=== PATIENT | male | born 1995 | race African-American/Black ===

== ENCOUNTER 2021-09-24 23:36 | Emergency (ER) | payer BC, SELFPAY ==
--- NOTE | ~2021-09-24 | XR_ITS ---
EXAMINATION: XR chest 2V DATE: 09/25/2021 00:05 INDICATION: Shortness of breath TECHNIQUE: PA and lateral views of the chest are obtained. COMPARISON: 04/06/2019 FINDINGS: The lungs are free of acute opacities. There is no pleural effusion or pneumothorax. The ca rdiomediastinal silhouette is normal. The visualized bones and soft tissues are unremarkable. IMPRESSION: 1. No acute cardiopulmonary abnormality. Reviewed, dictated and finalized at location A.
--- NOTE | 2021-09-24 23:38 | ECG_ITS ---
Measurements Intervals [place] Rate: 55 P: 62 [place]: 156 QRS: 83 QRSD: 143 T: 23 QT: 382 QTc: 366 Interpretive Statements SINUS BRADYCARDIA RIGHT BUNDLE BRANCH BLOCK BASELINE ARTIFACT- II, III, AVF ABNORMAL ECG Electronically Signed On 09-25-2021 6:26:48 CDT by David Mckinney D.O.
[2021-09-24 23:41] VITALS: BP 135/86; PULSE 71; RESP 16; TEMP 36.5; O2SAT 100
[2021-09-24 23:48] VITALS: O2SAT 98
--- NOTE | 2021-09-24 23:56 | ED.GENADULT ---
HPI - General Adult General Chief complaint: Chest Pain Stated complaint: Shortness of breath, Chest pain Time Seen by Provider: 09/24/21 23:47 History of Present Illness HPI narrative: Patient is a 25-year-old gentleman who presents to the emergency department with chief complaint of chest discomfort. Patient reports that he started having pain in the left side of his chest about 3 hours ago. Patient states the pain is more of a pressure sensation but worse with inspiration and worse with movement. Patient denies trauma denies fever denies chills reports that his only past medical history is for asthma and has had a testicular torsion and appendix surgery. The patient states that he has no family history for early cardiac disease no history of thromboembolic disease. Patient does report that he smokes cigarettes. Related Data Allergies Allergy/AdvReac Type Severity Reaction Status Date / Time No Known Allergies Allergy Verified 09/24/21 23:47 Review of Systems Review of Systems: A 10 system review of systems was completed on the patient and is negative except for what is stated in the HPI. Nursing and ancillary documentation was reviewed. [facility] Past Medical History Medical History Testicular torsion Social History Social History Smoking status: Current every day smoker Tobacco type: cigarettes and cigars Alcohol intake: current Substance use: current Substance use type: marijuana Exam Narrative: GENERAL: Well-appearing, well-nourished, and in no acute distress. HEAD: Normocephalic, atraumatic. EYES: PERRLA and EOMI. ENT: Nares clear, no rhinorrhea or epistaxis. Mucous membranes moist. NECK: Supple. CHEST: Clear to auscultation. No respiratory distress. Tenderness to palpation of the left sternal border. HEART: Regular rate and rhythm. No murmur heard. Normal peripheral pulses. ABDOMEN: Soft, nontender, nondistended, normal active bowel sounds. EXTREMITIES: Normal range of motion. No edema. SKIN: Warm, dry, no rash. NEURO: No focal deficits. Alert and oriented x3. PSYCH: Normal mood and affect. Course Course Emergency Course: EKG interpreted by me sinus rhythm rate of [address] elevation or ST depression there is a right bundle branch block. This is unchanged when compared to an EKG from March 2019 Vital Signs Vital signs: Vital Signs Temperature 36.5 C 09/24/21 23:41 Pulse Rate 71 09/24/21 23:41 Respiratory Rate 16 09/24/21 23:41 Blood Pressure 135/86 09/24/21 23:41 Pulse Oximetry 100 09/24/21 23:41 Temperature 36.5 C 09/24/21 23:41 Pulse Rate 56 L 09/25/21 02:59 Respiratory Rate 20 09/25/21 02:59 Blood Pressure 123/86 09/25/21 02:59 Pulse Oximetry 99 09/25/21 02:59 Medical Decision Making Vital Signs Vital Signs: Vital Signs Temperature 36.5 C 09/24/21 23:41 Pulse Rate 71 09/24/21 23:41 Respiratory Rate 16 09/24/21 23:41 Blood Pressure 135/86 09/24/21 23:41 Pulse Oximetry 100 09/24/21 23:41 Temperature 36.5 C 09/24/21 23:41 Pulse Rate 56 L 09/25/21 02:59 Respiratory Rate 20 09/25/21 02:59 Blood Pressure 123/86 09/25/21 02:59 Pulse Oximetry 99 09/25/21 02:59 Lab Data Result diagrams: 09/25/21 00:53 09/25/21 00:53 Labs: Lab Results 09/25/21 09/25/21 09/25/21 Range/Units 00:53 00:53 00:53 WBC 5.6 (4.5-10.0) K/mm3 RBC 4.93 (4.6-6.20) M/mm3 Hgb 14.7 (14.0-18.0) g/dL Hct 43.2 (42.0-52.0) % MCV 87.6 (80-100) fl MCH 29.8 (26-34) pg MCHC 34.0 (32-36) g/dl RDW 12.7 (11.5-14.5) % Plt Count 218 (150-375) k/mm3 MPV 9.2 (7.4-10.4) fl Immature Gran % (Auto) 0.2 (0-0.5) % Neut % (Auto) 53.0 (45.5-73.1) % Lymph % (Auto) 35.0 (18.3-44.2) % [place] % (Auto) 10.6 H (2.6-8.5) % Eos % (Auto) 0.7
[2021-09-25] MEDS: ASPIRIN 81 MG CHEWABLE TABLET 324 MG PO (00:48)
[2021-09-25] MEDS: KETOROLAC 30 MG/ML VIAL (*BKC) 15 MG IV PUSH (00:48)
[2021-09-25 00:49] VITALS: BP 130/79; PULSE 58; RESP 20; O2SAT 99
[2021-09-25 01:00] LABS: Basophils Percent Auto 0.5 % (0.2-1.2); Eosinophils Percent Auto 0.7 % (0-4.4); Hematocrit 43.2 % (42.0-52.0); Hemoglobin 14.7 g/dL (14.0-18.0); Immature Granulocyte Absolute 0.01 K/mm3 (0.00-0.031); Immature Granulocyte Percent A 0.2 % (0-0.5); Lymphocytes Absolute Auto 1.94 K/mm3 (0.9-3.2); Mean Corpuscular Hemoglobin 29.8 pg (26-34); Mean Corpuscular Volume 87.6 fl (80-100); Mean Platelet Volume 9.2 fl (7.4-10.4); Monocytes Absolute Auto 0.6 K/mm3 (0.1-0.6); Monocytes Percent Auto 10.6 % (2.6-8.5); Neutrophils Absolute Auto 2.9 K/mm3 (1.3-6.7); Platelet Count Result 218 k/mm3 (150-375); Red Blood Count 4.93 M/mm3 (4.6-6.20); Red Cell Distribution Width 12.7 % (11.5-14.5); White Blood Count 5.6 K/mm3 (4.5-10.0)
[2021-09-25 01:08] LABS: Alanine Aminotransferase 18 U/L (4-50); Albumin Level 4.9 g/dL (3.5-5.1); Alkaline Phosphatase 46 U/L (38-126); Anion Gap 7 mmol/L (8-16); Aspartate Amino Transferase 27 U/L (17-59); Bilirubin,Total 0.6 mg/dL (0.2-1.3); Blood Urea Nitrogen 12 mg/dL (9-20); Calcium 8.9 mg/dL (8.4-10.2); Carbon Dioxide 27 mmol/L (22-30); Chloride 105 mmol/L (98-107); Estimated CRCL calculation 73 ml/min; Estimated Glomerular Filt Rate > 60; Glucose 83 mg/dL (65-110); Lipase 31 U/L (23-300); Potassium 3.8 mmol/L (3.4-5.0); Sodium 139 mmol/L (137-145)
[2021-09-25 01:10] LABS: INR 1.1; Prothrombin Time 13.8 Seconds (11.1-14.7)
[2021-09-25 01:11] LABS: Partial Thromboplastin Time 30.1 SECONDS (22.3-36.8)
[2021-09-25 01:20] LABS: Troponin I < 0.012 ng/mL (0.000-0.034)
[2021-09-25 02:59] VITALS: BP 123/86; PULSE 56; RESP 20; O2SAT 99
[2021-09-25 03:05] LABS: Troponin I < 0.012 ng/mL (0.000-0.034)
[2021-09-25 04:00] VITALS: BP 110/71; PULSE 56; RESP 16; O2SAT 99
== END 2021-09-25 04:00 | disposition home or self-care (01) ==
PROVIDERS: Emergency Provider Emergency Medicine
DX: R07.89 Other chest pain (principal); F17.210 Nicotine dependence, cigarettes, uncomplicated; F17.290 Nicotine dependence, other tobacco product, uncomplicated; R00.1 Bradycardia, unspecified; I45.10 Unspecified right bundle-branch block
CPT/HCPCS: 36415; 71046; 80053; 83690; 84484; 85025; 85610; 85730; 93005; 96374; 99284; A9270; J1885

== ENCOUNTER 2022-04-06 17:54 | Emergency (ER) | payer BC, SELFPAY ==
[2022-04-06 18:09] VITALS: BP 118/65; PULSE 74; RESP 20; TEMP 36.2; O2SAT 100
--- NOTE | 2022-04-06 19:16 | ED.URI ---
HPI - URI/Sore Throat General Chief Complaint: Upper Respiratory Infection Stated Complaint: cp/sob Time Seen by Provider: 04/06/22 19:16 Source: patient Mode of arrival: ambulatory Limitations: no limitations History of Present Illness HPI Narrative: 26 y/o male with hx asthma presented for c/o left sided chest pain and shortness of breath for about 2 weeks. He endorses moving furniture 2 weeks ago but denies known injury. Taking albuterol and fluticasone inhalers as directed. Pain worse to left ribs with palpation. Denies cough, wheezing, fever, abdominal pain. Related Data Home Medications Medication Instructions Recorded Confirmed albuterol sulfate 90 mcg/actuation 2 inh inhalation DIRECTED 04/06/22 04/06/22 aerosol inhaler cetirizine 10 mg tablet 10 mg PO DAILY 04/06/22 04/06/22 fluticasone propionate 44 44 mcg inhalation DIRECTED 04/06/22 04/06/22 mcg/actuation HFA aerosol inhaler (Flovent HFA) Allergies Allergy/AdvReac Type Severity Reaction Status Date / Time No Known Allergies Allergy Verified 04/06/22 18:58 Review of Systems Review of Systems: CONSTITUTIONAL: Denies body aches, fever, chills, or sweats. EYES: Denies visual changes, redness, or discharge. ENT: Denies rhinorrhea, congestion, sore throat, or otalgia. CARDIOVASCULAR: Denies palpitations, or edema. RESPIRATORY: Denies cough or wheezing GASTROINTESTINAL: Denies abdominal pain, nausea, vomiting, or diarrhea. GENITOURINARY: Denies dysuria or hematuria. SKIN: Denies rash, itching, or wounds. MUSCULOSKELETAL: Denies back pain, joint pain, or myalgia. NEUROLOGIC: Denies headache, numbness, tingling, or weakness. All systems reviewed & are unremarkable except as noted in HPI and below PMFSH Past Medical History Medical History Testicular torsion Social History Social History Smoking status: Current every day smoker Tobacco type: cigarettes and cigars Alcohol intake: current Substance use: current Substance use type: marijuana Comments At time of signature, I have reviewed and agree with nursing past medical, surgical, social and family history unless otherwise noted. Please see nursing chart for further information. There is no relevant family history pertinent to the presenting complaint Exam Narrative: GENERAL: Well-appearing EYES: EOMI. No redness or drainage. Conjunctivae normal. ENT: Mucous membranes pink and moist. No rhinorrhea. CHEST: No respiratory distress. Clear to auscultation. Left lateral chest pain with palpation, no bruising redness or lesions HEART: Regular rate and rhythm. No murmur appreciated. Normal peripheral pulses. ABDOMEN: Soft, nontender, nondistended, normal active bowel sounds. EXTREMITIES: Normal range of motion. No edema. SKIN: Warm, dry, no rash. Capillary refill normal. Normal skin turgor. NEURO: No focal deficits. Alert and oriented x3. Gait steady. PSYCH: Normal affect. Course Course Emergency Course: Patient is aware of diagnosis, understands and agrees to treatment plan. Anticipatory guidance given. Patient agrees to follow-up as directed and is aware of reasons to seek care at the emergency department. Portions of this record may have been created with voice recognition software Level of Care: Express Care Visit Vital Signs Vital signs: Vital Signs Temperature 97.1 F L 04/06/22 18:09 Pulse Rate 74 04/06/22 18:09 Respiratory Rate 20 04/06/22 18:09 Blood Pressure 118/65 04/06/22 18:09 Pulse Oximetry 100 04/06/22 18:09 Oxygen Delivery Room Air 04/06/22 18:09 Temperature 97.1 F L 04/06/22 18:09 Pulse Rate 74 04/06/22 18:09 Respiratory Rate 20 04/06/22 18:09 Blood Pressure 118/65 04/06/22 18:09 Pulse Oximetry 100 04/06/22 18:09 Oxygen Delivery Room Air 04/06/22 18:09 MDM - URI/Sore Throat MDM Narrative
== END 2022-04-06 19:28 | disposition home or self-care (01) ==
PROVIDERS: Emergency Provider Nurse Practitioner Family
DX: R07.89 Other chest pain (principal); F17.210 Nicotine dependence, cigarettes, uncomplicated; F17.290 Nicotine dependence, other tobacco product, uncomplicated
CPT/HCPCS: 99211; G0463